=== PATIENT | male | born 1955 | race Caucasian/White ===

== ENCOUNTER 2017-03-20 10:01 | Day surgery (SDC) | payer OTHER ==
[~2017-03-20] VITALS: Ht 177.8 cm; Wt 80.7 kg
[2017-03-20] MEDS ORDERED: LR 1,000 ML IV.SOLN IV ONE (14:13)
[2017-03-20] MEDS ORDERED: METOCLOPRAMIDE HCL 10 MG/2 ML VIAL IVP ONE (14:13)
[2017-03-20] MEDS ORDERED: BACITRACIN ZINC 15 GM TOPICAL OINTMENT TP ONE (14:13)
[2017-03-20] MEDS ORDERED: PROPOFOL 200MG/ 20ML VIAL (DIPRIVAN) IV ONE (14:13)
[2017-03-20] MEDS ORDERED: WATER FOR IRRIGATION,STERILE 1,000 ML IRRIG.SOLN IR ONE (14:13)
[2017-03-20] MEDS ORDERED: MIDAZOLAM HCL 5 MG/5 ML VIAL IVP ONE (14:13)
[2017-03-20] MEDS ORDERED: NS IRRIG SOLN 1000 ML IR ONE (14:13)
[2017-03-20] MEDS ORDERED: EPINEPHrine 1 MG/ML AMP IVP ONE (14:13)
[2017-03-20] MEDS ORDERED: OXYMETAZOLINE HCL 0.05% NASAL SPRAY NS ONE (14:13)
[2017-03-20] MEDS ORDERED: MUPIROCIN 2% TOPICAL OINTMENT 22 GM TP ONE (14:13)
[2017-03-20] MEDS ORDERED: DEXAMETHASONE SOD PHOSPHATE 4 MG/ML VIAL IVP ONE (14:13)
[2017-03-20] MEDS ORDERED: GLYCOPYRROLATE 0.2 MG/ML VIAL IJ ONE (14:13)
[2017-03-20] MEDS ORDERED: fentaNYL CITRATE/PF 100 MCG/2 ML AMP IVP ONE (14:13)
[2017-03-20] MEDS ORDERED: LIDOCAINE/EPI 1% 1:100000 20 ML VIAL INJ ONE (14:13)
[2017-03-20] MEDS ORDERED: SEVOFLURANE 15 MIN GAS INH ONE (14:13)
[2017-03-20] MEDS ORDERED: ROCURONIUM BROMIDE 10 MG/ML (ZEMURON) IV ONE (14:13)
[2017-03-20] MEDS ORDERED: NS 100 ML BAG IV ONE (14:13)
[2017-03-20] MEDS ORDERED: LR 1,000 ML IV ONE (14:40)
[2017-03-20] MEDS ORDERED: ePHEDrine sulfate 50 MG/ML VIAL IVP PRN (14:45)
[2017-03-20] MEDS ORDERED: fentaNYL CITRATE/PF 100 MCG/2 ML AMP IVP PRN (14:45)
[2017-03-20] MEDS ORDERED: ONDANSETRON HCL 4 MG/2 ML VIAL IVP PRN ×2 (14:45)
[2017-03-20] MEDS ORDERED: DIPHENHYDRAMINE INJ 50 MG/ML VIAL IVP PRN (14:45)
[2017-03-20] MEDS ORDERED: NALBUPHINE HCL 10 MG/ML AMP IVP PRN (14:45)
[2017-03-20] MEDS ORDERED: NALOXONE HCL 0.4 MG/ML AMP (NARCAN) IVP PRN (14:45)
[2017-03-20 17:59] VITALS: BP_SYST 140
== END 2017-03-20 19:00 | disposition home or self-care (01) ==
LOC: SDS 10:01 → SMU 10:04 → SDS 19:00
PROVIDERS: ATTEND Otolaryngology
DX: J34.2 Deviated nasal septum (principal); J32.9 Chronic sinusitis, unspecified; J33.9 Nasal polyp, unspecified; J34.89 Other specified disorders of nose and nasal sinuses; G43.909 Migraine, unspecified, not intractable, without status migrainosus
CPT/HCPCS: 30140; 30520; 31237; 31267; 31296; 31297; 88305; 88311; C1726; J0171; J1100; J2250; J2704; J2765; J3010; J3490; J7120